=== PATIENT | female | born 1995 | race Caucasian/White ===

== ENCOUNTER 2021-04-25 10:38 | Emergency (ER) | payer OTHER ==
[~2021-04-25] VITALS: Ht 175.3 cm; Wt 117.9 kg
--- NOTE | 2021-04-25 11:59 | NUR ---
This pt presents to the ER with a MORTON that started after an LP. Pt had LP after discovering increased ICP at a routine eye appointment. Pt denies having any symptoms prior to LP. Now c/o MORTON that is relieved only by laying flat. Pt denies photophobia or nausea associated with MORTON.
--- NOTE | 2021-04-25 12:09 | NUR ---
Anesthesia paged by ERP.
--- NOTE | 2021-04-25 12:47 | NUR ---
Pt ambulatory to bathroom with steady gait.
--- NOTE | 2021-04-25 13:19 | NUR ---
Report to KENTON Pittman, to assume full care. Anesthesiology to bedside.
--- NOTE | 2021-04-25 13:49 | NUR ---
BLOOD PATCH DONE [address] SINGH. PT LYING FLAT ON BACK AT THIS TIME. TOLERTED WELL.
[2021-04-25 14:52] VITALS: BP 131/79
--- NOTE | 2021-04-25 14:54 | NUR ---
HOB SLOWLY RAISED TO 45 DEGREES, PT TOLLERATED WELL, DENIES MORTON. PT SITTING UP ON SIDE OF GURNEY, VSS AND DENIES MORTON
--- NOTE | 2021-04-25 14:59 | NUR ---
TASK RN: Patient/Caregiver given discharge instructions and they have confirmed that they understand the instructions. Patient ambulatory with steady gait.
== END 2021-04-25 15:00 | disposition home or self-care (01) ==
LOC: ED 12:17
DX: G97.1 Other reaction to spinal and lumbar puncture (principal)
CPT/HCPCS: 99281